=== PATIENT | female | born 1985 | race Caucasian/White ===

== ENCOUNTER 2017-03-04 23:14 | Emergency (ER) | payer OTHER ==
[2017-03-04 23:41] VITALS: TEMP 99.4; O2SAT 97
--- NOTE | 2017-03-04 23:49 | ED.PDOC ---
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 Stated Complaint: passed 3 blood clots, 11 days post delivery Time Seen by Provider: 03/04/17 23:43 Source: patient, family Exam Limitations: no limitations - History of Present Illness Timing/Duration: just prior to arrival Quality: mild, cramping Onset Location: suprapubic Radiation: none Activites at Onset: physical activity Prior abdominal problems: none Improving Factors: immobilization Worsening Factors: movement Associated Symptoms: abdominal pain Allergies/Adverse Reactions: Allergies Latex Allergy (Verified 03/04/17 23:41) Penicillin G Adverse Reaction (Verified 03/04/17 23:41) Home Medications: Ambulatory Orders Albuterol Sulfate Nebs [Proventil Nebs] 2.5 mg NEB Q4H PRN #0 vial 06/17/13 Azithromycin Tab [Zithromax] 250 mg PO QD #0 tab 06/17/13 Benzonatate Perles [Tessalon Perles] 100 mg PO Q8H PRN #0 cap 06/17/13 Budesonide-Formoterol Fumarate [Symbicort 80-4.5 Mcg/Act] 1 puff BID 06/17/13 Cephalexin [Keflex] 500 mg PO TID #0 cap 06/17/13 Ipratropium/Albuterol [Duoneb] 1 gabby NEB QID #0 vial 06/17/13 Loratadine [Claritin] 10 mg PO DAILY 06/17/13 Potassium Chloride [Micro-K] 10 meq PO DAILY #0 cap 06/17/13 predniSONE [Prednisone] 10 mg PO TID #0 tab 06/17/13 Review of Systems - Review of Systems Constitutional: Denies: chills, fever EENTM: States: no symptoms reported. Denies: nose congestion Respiratory: States: no symptoms reported Cardiology: States: no symptoms reported Gastrointestinal/Abdominal: States: abdominal pain. Denies: nausea, vomiting Genitourinary: States: discharge - blood clots x 3 while showering. Denies: dysuria Skin: States: no symptoms reported Neurological: Denies: headache, numbness, paresthesia Hematologic/Lymphatic: States: anemia Past Medical History (General) - Patient Medical History Hx Seizures: No Hx Stroke: No Hx Dementia: No Hx Asthma: No Hx of COPD: No Hx Cardiac Disorders: No Hx Congestive Heart Failure: No Hx Pacemaker: No Hx Hypertension: No Hx Thyroid Disease: No Hx Diabetes: No Hx Gastroesophageal Reflux: No Hx Renal Disease: No Hx Cancer: No Hx of HIV: No Hx Hepatitis C: No Hx MRSA: No - Vaccination History Hx Tetanus, Diphtheria Vaccination: Yes Hx Influenza Vaccination: Yes - Social History Hx Alcohol Use: No Hx Substance Use: No Hx Depression: No Hx Physical Abuse: No Hx Emotional Abuse: No Family Medical History - Family History Mother Living Status: Unknown Physical Exam - Physical Exam General Appearance: Alert, Anxious Eyes, Ears, Nose, Throat Exam: PERRL/EOMI Cardiovascular/Respiratory: regular rate, rhythm, normal breath sounds Gastrointestinal/Abdominal: normal bowel sounds, soft, tenderness, other - healing incision Rectal Exam: deferred Pelvic Exam: external exam normal, no cerv. motion tender, blood - dark red blood in vault, cx closed Back Exam: normal inspection Extremity: no pedal edema, no calf tenderness Neurologic: alert, normal mood/affect, oriented x 3 Skin Exam: normal color, warm/dry Departure - Departure Clinical Impression: bleeding Disposition: Discharge to Home or Self Care Departure Forms: ED Discharge - Pt. Copy, Patient Portal Self Enrollment Referrals: Godfrey Armijo MD [Primary Care Provider] - 1-2 Weeks Home Medications: Ambulatory Orders Albuterol Sulfate Nebs [Proventil Nebs] 2.5 mg NEB Q4H PRN #0 vial 06/17/13 Azithromycin Tab [Zithromax] 250 mg PO QD #0 tab 06/17/13 Benzonatate Perles [Tessalon Perles] 100 mg PO Q8H PRN #0 cap 06/17/13 Budesonide-Formoterol Fumarate [Symbicort 80-4.5 Mcg/Act] 1 puff BID 06/17/13 Cephalexin [Keflex] 500 mg PO TID #0 cap 06/17/13 Ipratropium/Albuterol [Duoneb] 1 gabby NEB QID #0 vial 06/17/13 Loratadine [Claritin] 10 mg PO DAILY 06/17/13 Potassium Chloride [Micro-K] 10 meq PO DAILY #0 cap 06/17/13 predniSONE [Prednisone] 10 mg PO TID #0 tab 06/17/13
[2017-03-05 01:16] VITALS: BP 135/80
== END 2017-03-05 01:16 | disposition home or self-care (01) ==
LOC: ER 23:14
DX: O72.1 Other immediate postpartum hemorrhage (principal); Z91.040 Latex allergy status

== ENCOUNTER → 2018-02-28 | Outpatient (CLI) | payer BC, OTHER | LOC: GMAJS 14:23 | PROVIDERS: ATTEND Physician Assistant | DX: R53.81 Other malaise (principal); R53.83 Other fatigue ==